=== PATIENT | female | born 1950 | race Asian ===

== ENCOUNTER → 2016-09-05 | Day surgery (SDC) | payer BC ==
[~2016-09-05] VITALS: Ht 152.4 cm; Wt 42.7 kg
[~2016-09-05] MED LIST: HYDRODIURIL25 MG PO; MYLANTA (MAG-AL30 ML PO; STOOL SOFTENER1 EACH PO
[2016-09-05 10:59] LABS: CREATININE 0.7 mg/dL (0.5-1.1)
[2016-09-05 11:02] LABS: ESTIMATED GFR (MDRD EQUATION) > 60
== END | disposition disaster alternative care site (69) ==
LOC: GPOC 09-01 15:00 → GEND 06:54 → GPOC 15:00
PROVIDERS: Internal Medicine Adolescent Medicine
PROC: 0W3P8ZZ Control Bleeding in Gastrointestinal Tract, Via Natural or Artificial Opening Endoscopic (ICD-10-PCS; principal; 2016-09-05)
PROC: 0DB98ZZ Excision of Duodenum, Via Natural or Artificial Opening Endoscopic (ICD-10-PCS; 2016-09-05)
PROC: 0DBK8ZZ Excision of Ascending Colon, Via Natural or Artificial Opening Endoscopic (ICD-10-PCS; 2016-09-05)
DX: D12.2 Benign neoplasm of ascending colon (principal); K64.0 First degree hemorrhoids; D50.9 Iron deficiency anemia, unspecified; Z88.0 Allergy status to penicillin; Z88.2 Allergy status to sulfonamides; Z90.49 Acquired absence of other specified parts of digestive tract
CPT/HCPCS: J2001; J7030